=== PATIENT | male | born 1985 | race Caucasian/White ===

== ENCOUNTER 2018-08-05 16:32 | Emergency (ER) | payer SELFPAY ==
[~2018-08-05] VITALS: Ht 180.3 cm; Wt 83.9 kg
[2018-08-05 16:40] VITALS: BP 144/85
[2018-08-05] MEDS ORDERED: cefTRIAXone SOD 1,000 MG VL IM ONE (19:00)
[2018-08-05] MEDS ORDERED: TETANUS-DIPTH-ACEL PERTUSSIS 0.5ML SYRG IM ONE (19:00)
[2018-08-05] MEDS ORDERED: LIDOCAINE 1% HCL (LOCAL ANESTH.) INJ 20ML MDV ONE (19:40)
[2018-08-05] MEDS ORDERED: LIDOCAINE 1% HCL (LOCAL ANESTH.) INJ 20ML MDV IJ ONE (20:00)
== END 2018-08-05 20:35 | disposition home or self-care (01) ==
LOC: ER 16:37
DX: S61.412A Laceration without foreign body of left hand, initial encounter (principal); W22.8XXA Striking against or struck by other objects, initial encounter; Y93.89 Activity, other specified; Y99.8 Other external cause status; Y92.89 Other specified places as the place of occurrence of the external cause
CPT/HCPCS: 12001; 90471; 90715; 96372; 99283; J0696; J2001